=== PATIENT | male | born 2000 | race Two or more races ===

== ENCOUNTER 2019-07-23 14:21 | Emergency (ER) | payer MEDICAID ==
[~2019-07-23] VITALS: Ht 177.8 cm; Wt 77.3 kg
[2019-07-23 14:41] VITALS: BP 131/72
== END 2019-07-23 15:21 | disposition home or self-care (01) ==
LOC: ER 14:22
DX: Z00.00 Encounter for general adult medical examination without abnormal findings (principal)
CPT/HCPCS: 99281

== ENCOUNTER 2020-09-08 15:29 | Emergency (ER) | payer MEDICAID ==
[~2020-09-08] VITALS: Ht 175.3 cm; Wt 81.8 kg
[2020-09-08] MEDS ORDERED: dexamethasone sod phosphate 10mg/ml inj PO STA (15:47)
[2020-09-08 15:51] VITALS: BP 117/93
--- NOTE | 2020-09-08 16:05 | NUR ---
Pt. eloped during triage, pt. has been seen and evaluated by PA.
[2020-09-10] MEDS ORDERED: IBUP-1984 PO (10:44)
[2020-09-10] MEDS ORDERED: ACET-2006 PO (10:44)
[2020-09-10] MEDS ORDERED: LIDO20SO16 PO (10:44)
[2020-09-10] MEDS ORDERED: PENI500T2 PO (10:44)
[2020-09-10] MEDS ORDERED: DOXY100C2 PO (10:44)
== END 2020-09-08 16:30 | disposition left against medical advice (07) ==
LOC: ER 15:29
DX: J02.8 Acute pharyngitis due to other specified organisms (principal); B97.89 Other viral agents as the cause of diseases classified elsewhere
CPT/HCPCS: 99281

== ENCOUNTER → 2020-09-10 | Emergency (ER) | payer MEDICAID ==
[~2020-09-10] VITALS: Ht 175.3 cm; Wt 81.8 kg
[~2020-09-10] MED LIST: ACET-2006 PO; DOXY100C2 PO; IBUP-1984 PO; LIDO20SO16 PO; LIDOcaine 1% W/epiNEPHrine 1:100,000 20ml vial IJ ONE; LIDOcaine 1% W/epiNEPHrine 1:200,000 10ml vial IJ ONE; LIDOcaine Viscous 15ml cup MM STA; PENI500T2 PO; TETanus/Pertussis (Acell)/Diphther VAC/PF (Tdap-Adult) 0.5ml syringe IMVAC ONE; acetaminophen 325mg tablet PO ONE; dexamethasone sod phosphate 10mg/ml inj PO STA
[2020-09-10 10:14] VITALS: BP 122/73
== END | disposition home or self-care (01) ==
LOC: ER 08:48
DX: L02.512 Cutaneous abscess of left hand (principal); J02.9 Acute pharyngitis, unspecified; H92.03 Otalgia, bilateral; R19.7 Diarrhea, unspecified; F15.90 Other stimulant use, unspecified, uncomplicated; Z79.899 Other long term (current) drug therapy
CPT/HCPCS: 26010; 87880; 90471; 90715; 99284; J1100

== ENCOUNTER 2022-02-11 01:37 | Emergency (ER) | payer MEDICAID ==
[~2022-02-11] VITALS: Ht 182.9 cm; Wt 87.8 kg
[~2022-02-11 01:37] MED LIST changes: -ACET-2006 PO; -DOXY100C2 PO; -IBUP-1984 PO; -LIDOcaine 1% W/epiNEPHrine 1:100,000 20ml vial IJ ONE; -LIDOcaine 1% W/epiNEPHrine 1:200,000 10ml vial IJ ONE; -LIDOcaine Viscous 15ml cup MM STA; -PENI500T2 PO; -TETanus/Pertussis (Acell)/Diphther VAC/PF (Tdap-Adult) 0.5ml syringe IMVAC ONE; -acetaminophen 325mg tablet PO ONE; -dexamethasone sod phosphate 10mg/ml inj PO STA
[2022-02-11] MEDS ORDERED: TETanus/Pertussis (Acell)/Diphther VAC/PF (Tdap-Adult) 0.5ml syringe IMVAC ONE (02:40)
[2022-02-11] MEDS ORDERED: LIDOcaine 1%/PF 5ML 10 MG/ML VIAL IJ ONE (02:50)
[2022-02-11 03:29] VITALS: BP 155/91
== END 2022-02-11 03:31 | disposition home or self-care (01) ==
LOC: ER 01:37
DX: S61.211A Laceration without foreign body of left index finger without damage to nail, initial encounter (principal); F15.90 Other stimulant use, unspecified, uncomplicated; Z20.3 Contact with and (suspected) exposure to rabies; Z79.899 Other long term (current) drug therapy; W45.8XXA Other foreign body or object entering through skin, initial encounter; Y93.89 Activity, other specified; Y92.89 Other specified places as the place of occurrence of the external cause; Y99.8 Other external cause status
CPT/HCPCS: 12001; 90471; 90715; 99283

== ENCOUNTER 2022-05-06 17:51 | Emergency (ER) | payer MEDICAID ==
[~2022-05-06] VITALS: Ht 180.3 cm; Wt 72.8 kg
[2022-05-06 17:54] VITALS: BP 116/60
[2022-05-06 18:59] LABS: BASOPHILS % (AUTO) 0.8 % (0-1); EOSINOPHILS # (AUTO) 0.2 X10'3 (0-0.9); EOSINOPHILS % (AUTO) 3.9 % (0-6); HEMATOCRIT 38.1 % (42.0-52.0); HEMOGLOBIN 13.1 g/dl (14.0-17.9); LYMPHOCYTES # (AUTO) 1.6 X10'3 (1.1-4.8); LYMPHOCYTES % (AUTO) 25.3 % (21-51); MEAN CORPUSCULAR HEMOGLOBIN 28.5 PG (27.0-31.0); MEAN CORPUSCULAR HGB CONC 34.4 g/dL (33.0-36.5); MEAN CORPUSCULAR VOLUME 82.8 FL (78-98); MEAN PLATELET VOLUME 7.8 FL (7.4-10.4); MONOCYTES # (AUTO) 0.6 X10'3 (0-0.9); MONOCYTES % (AUTO) 9.9 % (2-12); NEUTROPHILS # (AUTO) 3.8 X10'3 (1.8-7.7); NEUTROPHILS % (AUTO) 60.1 % (42-75); PLATELET COUNT 348 X10'3 (140-440); RED CELL DISTRIBUTION WIDTH 14.9 % (11.5-14.5); WHITE BLOOD COUNT 6.3 X10'3 (4.5-11.0)
[2022-05-06 19:11] LABS: ALANINE AMINOTRANSFERASE 15 U/L (12-78); ALBUMIN 3.9 G/DL (3.4-5.0); ALKALINE PHOSPHATASE 86 IU/L (46-116); ANION GAP 7 (8-16); ASPARTATE AMINO TRANSFERASE 14 U/L (10-37); BILIRUBIN,TOTAL 0.4 MG/DL (0.1-1.0); BLOOD UREA NITROGEN 12 MG/DL (7-18); BUN/CREATININE RATIO 15.6 (5.4-32.0); CALCIUM 8.9 MG/DL (8.5-10.1); CHLORIDE 102 MMOL/L (99-107); CREATININE 0.77 MG/DL (0.60-1.10); GLUCOSE 105 MG/DL (70-104); POTASSIUM 3.4 MMOL/L (3.5-5.1); SODIUM 137 MMOL/L (135-145); TOTAL CARBON DIOXIDE 28.3 MMOL/L (24-32); TOTAL PROTEIN 7.9 G/DL (6.4-8.2); eGFR > 90 ML/MIN
== END 2022-05-06 20:56 | disposition left against medical advice (07) ==
LOC: ER 17:52
DX: M25.572 Pain in left ankle and joints of left foot (principal); Z53.21 Procedure and treatment not carried out due to patient leaving prior to being seen by health care provider
CPT/HCPCS: 36415; 80053; 83605; 84145; 85025; 87040

== ENCOUNTER 2022-08-04 09:13 | Emergency (ER) | payer MEDICAID ==
[~2022-08-04] VITALS: Ht 180.3 cm; Wt 75.0 kg
[2022-08-04 13:46] VITALS: BP 132/80
== END 2022-08-04 13:45 | disposition home or self-care (01) ==
LOC: ER 09:13
DX: L90.5 Scar conditions and fibrosis of skin (principal); M79.605 Pain in left leg; F15.10 Other stimulant abuse, uncomplicated; Z79.899 Other long term (current) drug therapy
CPT/HCPCS: 99281